=== PATIENT | female | born 1970 | race Caucasian/White ===

== ENCOUNTER 2018-09-25 22:01 | Inpatient (IN) | payer OTHER ==
[~2018-09-25] VITALS: Ht 172.7 cm; Wt 79.8 kg
--- NOTE | 2018-09-25 22:10 | NUR ---
PT BIBSELF FROM HOME FOR ALLERGIC REACTION TO UNK, HIVES TO BT ARMS, PT AAOX4, PT ON MONITOR, VSS, NAD NOTED, PENDING MD JACOBS
[2018-09-25] MEDS ORDERED: EPINEPHRINE (1:1000) 1 MG/ML AMPUL ONE (22:15)
[2018-09-25 22:26] LABS: BASOPHILS % (AUTO) 0.3 % (0.0-2.0); EOSINOPHILS % (AUTO) 0.4 % (0.0-6.0); HEMATOCRIT 40 % (33-45); HEMOGLOBIN 13.8 g/dL (11.5-14.8); LYMPHOCYTES # (AUTO) 2.5 /CMM (0.8-4.8); LYMPHOCYTES % (AUTO) 52.6 % (20.0-44.0); MEAN CORPUSCULAR HGB CONC 35 g/dl (31.0-36.0); MEAN CORPUSCULAR VOLUME 94 fL (82-100); MONOCYTES # (AUTO) 0.3 /CMM (0.1-1.30); MONOCYTES % (AUTO) 6.3 % (2.0-12.0); NEUTROPHILS # (AUTO) 1.9 /CMM (1.8-8.9); NEUTROPHILS % (AUTO) 40.4 % (43.0-81.0); PLATELET COUNT (AUTO) 270 /CMM (150-450); RED BLOOD CELL COUNT(AUTO) 4.24 MIL/uL (4.0-5.2); WHITE BLOOD COUNT (AUTO) 4.7 K/uL (4.3-11.0)
[2018-09-25] MEDS ORDERED: diphenhydrAMINE HCL 50 MG/ML VIAL IV ONE (22:30)
[2018-09-25] MEDS ORDERED: methylPREDNISolone SOD SUCC 125 MG/2ML VIAL IV ONE (22:30)
[2018-09-25] MEDS ORDERED: ALBUTEROL FS 2.5 MG/3 ML VIAL.NEB CONTNEB ONE (22:30)
[2018-09-25] MEDS ORDERED: IV NS 0.9% 1,000 ML BAG IV ONE (22:30)
[2018-09-25] MEDS ORDERED: EPINEPHRINE (1:1000) MDV 30 MG/30ML VIAL IM ONE (22:30)
[2018-09-25] MEDS ORDERED: FAMOTIDINE/PF INJ 20 MG/2 ML VIAL IV ONE (22:30)
[2018-09-25 22:34] LABS: CALCIUM, SERUM 9.1 mg/dL (8.5-10.1); CARBON DIOXIDE 27 mmol/L (21-32); CHLORIDE 107 mmol/L (98-107); CREATININE 0.9 mg/dL (0.6-1.3); GLUCOSE 93 mg/dL (74-106); POTASSIUM 3.3 mmol/L (3.5-5.1); SODIUM SERUM 141 mmol/L (136-145); UREA NITROGEN, BLOOD 18 mg/dL (7-18)
[2018-09-25 22:39] LABS: ALANINE AMINOTRANSFERASE 26 U/L (12-78); ALBUMIN 3.6 g/dL (3.4-5.0); ALKALINE PHOSPHATASE 100 U/L (46-116); ASPARTATE AMINOTRANSFERASE 15 U/L (15-37); BILIRUBIN,DIRECT 0.1 mg/dL (0.0-0.2); BILIRUBIN,TOTAL 0.3 mg/dL (0.2-1.0); TOTAL PROTEIN, SERUM 7.1 g/dL (6.4-8.2)
--- NOTE | 2018-09-25 22:51 | NUR ---
CORRECTION: ROOM 304-2
--- NOTE | 2018-09-25 22:57 | NUR ---
ANOTHER CORRECTION 321-2
--- NOTE | 2018-09-25 23:00 | NUR ---
REPORT GIVEN TO JAZZ FAGAN FOR ERINN
--- NOTE | 2018-09-26 01:52 | NUR ---
ENTOMOLOGY TEACHER ADMITTING NOTES RECEIVED PT FROM ER VIA SABA WITH FAMILY AT BEDSIDE. PT IS A/O X4 AND ABLE TO MAKE NEEDS KNOWN. PT AMBULATES WITH STEADY GAIT. PT WITH MONITOR AT SINUS 79. PT ON RA AND TOLERATING WELL. DENIES ANY PAIN AT THIS TIME. BREATHING EVEN AND UNLABORED WITH NO S/S OF ACUTE DISTRESS OR SOB NOTED. ORIENTED PT TO [place]. CALL LIGHT WITHIN REACH. WILL CONTINUE TO MONITOR.
[2018-09-26 02:00] VITALS: BP 115/69
[2018-09-26] MEDS ORDERED: IV NS 0.9% 1,000 ML IV PRN (03:06)
[2018-09-26] MEDS ORDERED: ONDANSETRON HCL/PF 4 MG/2 ML VIAL IVP PRN (03:30)
[2018-09-26] MEDS ORDERED: diphenhydrAMINE HCL 25 MG CAPSULE PO PRN (03:30)
[2018-09-26] MEDS ORDERED: MAG HYDROX/AL HYDROX/SIMETH 30 ML UDC PO PRN (03:30)
[2018-09-26] MEDS ORDERED: ZOLPIDEM TARTRATE 5 MG TABLET PO PRN (03:30)
[2018-09-26] MEDS ORDERED: HYDROCODONE/APAP 5/325MG 1 EACH TABLET PO PRN (03:30)
[2018-09-26] MEDS ORDERED: ACETAMINOPHEN 325 MG TABLET PO PRN (03:30)
[2018-09-26] MEDS ORDERED: MAGNESIUM HYDROXIDE 30 ML UDC PO PRN (03:30)
[2018-09-26 04:08] VITALS: BP 112/70
--- NOTE | 2018-09-26 06:46 | NUR ---
PRESCRIPTION CLERK NOTES PT IN BED SLEEPING BUT EASILY AWOKEN VERBALLY OR BY TOUCH WITH FAMILY AT BEDSIDE. PT IS A/O X4 AND ABLE TO MAKE NEEDS KNOWN. PT AMBULATES WITH STEADY GAIT. PT WITH MONITOR AT SINUS 79. PT WITH LAC #18G PATENT AND INTACT SL. PT DENIES ANY PAIN AT THIS TIME. BREATHING EVEN AND UNLABORED WITH NO S/S OF ACUTE DISTRESS OR SOB NOTED THROUGHOUT SHIFT. CALL LIGHT WITHIN REACH. WILL ENDORSE TO ONCOMING NURSE FOR ERINN.
--- NOTE | 2018-09-26 07:30 | NUR ---
TYRE BUILDER NOTES PT IN BED, AWAKE, ALERT AND ORIENTED, DENIES PAIN, NOT IN DISTRESS, NO HIVES OR RASHES NOTED AT THIS TIME, CALL LIGHT WITHIN REACH.
[2018-09-26 08:00] VITALS: BP 113/71
[2018-09-26] MEDS ORDERED: BUPR150T10 PO (08:17)
[2018-09-26] MEDS ORDERED: ESTR1TAB17 PO (08:17)
[2018-09-26] MEDS ORDERED: CETI10TA14 PO (08:17)
[2018-09-26] MEDS: methylPREDNISolone SOD SUCC 40 MG/ML VIAL IV SCH ×2 (08:25→12:55)
[2018-09-26] MEDS ORDERED: FAMOTIDINE (20 MG) 20 MG TABLET PO SCH (09:00)
[2018-09-26] MEDS ORDERED: POTASSIUM CHLORIDE 20 MEQ TAB.PRT.SR PO ONE (14:00)
--- NOTE | 2018-09-26 14:15 | NUR ---
RN MS NOTES PT IN BED, AWAKE, ALERT AND ORIENTED, NO COMPLAINT OF PAIN, NO MORE HIVES OR RASH NOTED, NO COMPLAINT OF ITCHINESS OR SHORTNESS OF BREATH, AMBULATES INSIDE HER ROOM WITH STEADY GAIT, TOLERATING CURRENT DIET, SEEN BY DR. RODRIGUEZ, DISCHARGE AND FOLLOW UP INSTRUCTIONS GIVEN TO PT, VERBALIZED UNDERSTANDING, REMINDED PT TO FOLLOW UP WITH HER PRIMARY CARE PHYSICIAN AND TO RETURN TO THE NEAREST E.R. IN CASE OF EMERGENCY, VERBALIZED UNDERSTANDING, BELONGINGS ACCOUNTED FOR, ACCOMPANIED PT TO HOSPITAL LOBBY, PICKED UP BY HER , LEFT VIA PRIVATE CAR IN STABLE CONDITION.
== END 2018-09-26 14:00 | disposition home or self-care (01) | DRG 916 ==
LOC: ER 22:08 → TELE 22:56 → MED 09-26 08:51
DX: T78.00XA Anaphylactic reaction due to unspecified food, initial encounter (principal)
CPT/HCPCS: 36415; 71045-TC; 80048-TC; 80076-TC; 84484-TC; 85025-TC; 87081-TC; G0378; J0171; J1200; J2920; J2930; J3490; J7030